=== PATIENT | female | born 1965 | race Caucasian/White ===

== ENCOUNTER → 2022-03-21 | Outpatient (CLI) | payer BC ==
[~2022-03-21] MED LIST: AMITRIPTYLINE H25 MG PO; BREO ELLIPTA 11 EACH INH; BUSPAR 10MG10 MG PO; CLARITIN10 MG PO; DICLOFENAC 1% GEL TOP; FLONASE 0.05% N16 GM; GEODON40 MG PO; LEVAQUIN750 MG PO; LINZESS290 MCG PO; MIRALAX17 GM PO; NAPROSYN500 MG PO; NEURONTIN300 MG PO; NORCO 7.5-3251 EACH PO; PRAVASTATIN SOD80 MG PO; PROTONIX40 MG PO; SINGULAIR10 MG PO; TIROSINT88 MCG PO; VENTOLIN HFA 66.7 GM INH; VISTARIL 50 MG50 MG PO; ZANAFLEX4 MG PO; ZOFRAN ODT 4 MG4 MG GT
== END ==
LOC: KOH-I 08:00
DX: R91.1 Solitary pulmonary nodule (principal); R10.9 Unspecified abdominal pain; K76.0 Fatty (change of) liver, not elsewhere classified
CPT/HCPCS: 71250; 74176